=== PATIENT | female | born 1960 | race Two or more races ===

== ENCOUNTER 2017-09-27 09:41 | Emergency (ER) | payer OTHER, MEDICAID ==
[~2017-09-27] VITALS: Ht 162.6 cm; Wt 63.5 kg
[~2017-09-27 09:41] MED LIST: METFSOL2
[2017-09-27 10:00] VITALS: BP 158/85
[2017-09-27] MEDS ORDERED: methylPREDNISolone SOD SUCC 125 MG/2 ML VL IM ONE (10:00)
[2017-09-27] MEDS ORDERED: diphenhdrAMINE HCL 25 MG CAP PO ONE (10:00)
== END 2017-09-27 10:30 | disposition home or self-care (01) ==
LOC: ER 09:41
DX: L30.9 Dermatitis, unspecified (principal); E11.9 Type 2 diabetes mellitus without complications; I10 Essential (primary) hypertension; Z90.49 Acquired absence of other specified parts of digestive tract
CPT/HCPCS: 82962; 96372; 99283; J2930

== ENCOUNTER → 2018-09-09 | Outpatient (CLI) | payer OTHER, MEDICAID ==
[2018-09-09 10:11] LABS: Basophils # (auto) 0 uL; Basophils % (auto) 0.8 % (0.0-2.0); Eosinophils # (auto) 0.1 uL; Eosinophils % (auto) 1.6 % (0.0-7.0); Hematocrit 42.1 % (36.0-46.0); Hemoglobin 14.5 g/dL (12.2-16.2); Lymphocytes # (auto) 1.7 uL; Lymphocytes % (auto) 29.1 % (10.0-50.0); Mean Corpuscular Hemoglobin 29.6 pg (28.0-32.0); Mean Corpuscular Hgb Conc. 34.3 g/dL (32.0-36.0); Mean Corpuscular Volume 86.2 fL (80.0-100.0); Monocytes # (auto) 0.4 uL; Monocytes % (auto) 6.3 % (0.0-12.0); Neutrophils # (auto) 3.6 uL; Neutrophils % (auto) 62.2 % (37.0-80.0); Nucleated Red Blood Cells % 0.1 %; Platelet Count (auto) 293 10^3/uL (140-450); Red Blood Cells 4.89 10^6/uL (4.0-5.20); Red Cell Distribution Width 13.7 % (11.8-14.3); White Blood Cell 5.8 10^3/uL (4.4-10.8)
[2018-09-09 10:15] LABS: Urine Bacteria NONE SEEN /hpf (None Seen); Urine Blood Negative /uL (Negative); Urine Specific Gravity 1.011 (1.001-1.035); Urine WBC <1 /hpf (0 - 5)
[2018-09-09 11:12] LABS: Albumin 4.4 g/dL (3.4-5.0); Calcium 9.4 mg/dL (8.5-10.1); Potassium 3.6 mmol/L (3.5-5.1)
[2018-09-09 11:17] LABS: BUN/Creatinine Ratio 14.4; Bilirubin, Total 0.6 mg/dL (0.2-1.0); Total Protein 8.3 g/dL (6.4-8.2)
== END | disposition home or self-care (01) ==
LOC: LAB 09:13
PROVIDERS: ATTEND Internal Medicine
DX: E11.9 Type 2 diabetes mellitus without complications (principal); I10 Essential (primary) hypertension
CPT/HCPCS: 36415; 80053; 80061; 81001; 82043; 83036; 84439; 84443; 85025; 85652

== ENCOUNTER 2018-11-16 10:46 | Inpatient (IN) | payer OTHER, MEDICAID ==
[~2018-11-16] VITALS: Ht 160 cm; Wt 66.9 kg
[2018-11-16] MEDS ORDERED: diphenhdrAMINE HCL 50 MG/1 ML VL IV ONE ×2 (11:30→12:15)
[2018-11-16] MEDS ORDERED: SODIUM CHLORIDE 0.9% 1,000 ML IVB ONE (12:04)
[2018-11-16] MEDS ORDERED: FAMOTIDINE (10MG/ML) 2ML VL IV ONE (12:15)
[2018-11-16] MEDS ORDERED: methylPREDNISolone SOD SUCC 125 MG/2 ML VL IV ONE (12:15)
[2018-11-16 12:50] LABS: Urine Bacteria FEW /hpf (None Seen); Urine Blood Negative /uL (Negative); Urine Hyaline Cast FEW /lpf (0 - 2); Urine Mucus FEW (None Seen); Urine Specific Gravity 1.033 (1.001-1.035); Urine WBC 24 /hpf (0 - 5)
[2018-11-16 13:12] LABS: Basophils # (auto) 0 uL; Basophils % (auto) 0.3 % (0.0-2.0); Eosinophils # (auto) 0 uL; Eosinophils % (auto) 0.1 % (0.0-7.0); Hematocrit 43.6 % (36.0-46.0); Hemoglobin 14.7 g/dL (12.2-16.2); Lymphocytes # (auto) 1.9 uL; Lymphocytes % (auto) 22.1 % (10.0-50.0); Mean Corpuscular Hgb Conc. 33.6 g/dL (32.0-36.0); Mean Corpuscular Volume 86.2 fL (80.0-100.0); Monocytes # (auto) 0.5 uL; Monocytes % (auto) 5.3 % (0.0-12.0); Neutrophils # (auto) 6.3 uL; Neutrophils % (auto) 72.2 % (37.0-80.0); Platelet Count (auto) 340 10^3/uL (140-450); Red Blood Cells 5.06 10^6/uL (4.0-5.20); White Blood Cell 8.7 10^3/uL (4.4-10.8)
[2018-11-16 13:18] LABS: INR 0.97 (0.9-1.15); Partial Thromboplastin Time 23.1 sec (23.64-32.05)
[2018-11-16 13:28] LABS: Albumin 3.4 g/dL (3.4-5.0); Calcium 8.5 mg/dL (8.5-10.1); Magnesium 2.2 mg/dL (1.6-2.6); Potassium 4.1 mmol/L (3.5-5.1)
[2018-11-16 13:31] LABS: BUN/Creatinine Ratio 22.6; Bilirubin, Total 0.4 mg/dL (0.2-1.0); Total Protein 6.4 g/dL (6.4-8.2)
[2018-11-16] MEDS ORDERED: cefTRIAXone 1GM/50ML D5W 50 ML IV ONE (15:00)
[2018-11-16] MEDS ORDERED: ONDANSETRON HCL 4 MG/2 ML VIAL IV PRN (16:45)
[2018-11-16] MEDS ORDERED: HYDROCORTONE 1% TOPICAL CREAM 30 GM TUBE TOP ONE (16:45)
[2018-11-16] MEDS ORDERED: ACETAMINOPHEN 500 MG TAB PO PRN (16:45)
[2018-11-16] MEDS ORDERED: MORPHINE SULF INJ 2 MG/ML SYRINGE 1ML IV PRN ×2 (16:45)
[2018-11-16] MEDS ORDERED: ALBUTEROL SULF 2.5 MG/0.5ML(0.5%) NEB SOLN NEB PRN (16:45)
[2018-11-16] MEDS ORDERED: NITROGLYCERIN 0.4 MG SL TAB SL PRN (16:45)
[2018-11-16] MEDS ORDERED: HYDROcodone-ACET 5/325MG TAB PO PRN (16:45)
[2018-11-16] MEDS ORDERED: IPRATROPIUM BROM 0.5 MG/2.5ML INH SOL NEB PRN (16:45)
[2018-11-16] MEDS ORDERED: DEXTROSE (50%) 50ML SYRG IV PRN (16:45)
[2018-11-16] MEDS: SODIUM CHLORIDE 0.9% 1,000 ML IV SCH (17:00)
[2018-11-16] MEDS: InsuLIN REG 1unit/0.01ml Soln (100units/ml) SC SCH ×2 (17:22→21:46)
[2018-11-16] MEDS: ACCU-CHEK COMFORT CURVE STRIP VI SCH ×2 (17:22→21:47)
--- NOTE | 2018-11-16 17:44 | NUR ---
Telemetry admit from ER [facility] admitted to Telemetry unit after SBAR received. Patient oriented to Perri Jaime, primary RN, unit, room, bed, and unit policies regarding patient care and visiting hours. Patient now on continuous telemetry monitoring, tele box # [id number] and telemetry reading on arrival to unit is . Patient placed on bedside oxygen at 2l nc as ordered. Pt weighed by bedscale and encouraged to call if they need something. Pt's sister at bedside. All questions and concerns addressed, patient verbalized understanding. No s/s of distress or sob noted. Pt denies pain. Will cont care
[2018-11-16 17:45] VITALS: BP 108/61
[2018-11-16] MEDS ORDERED: ASPI81CH43 PO (18:09)
[2018-11-16] MEDS ORDERED: ATOR10TA52 PO (18:09)
[2018-11-16] MEDS ORDERED: METF-370 PO (18:09)
[2018-11-16] MEDS ORDERED: DYA375C PO (18:09)
--- NOTE | 2018-11-16 18:50 | NUR ---
PT ASSESSED FOR PRN MED NEB TX. SPO2 94% ON RA, HR 104, B/S CLEAR T/O, RR 20. PT DENIES ANY RESPIRATORY DISTRESS. NO TX INDICATED. PT IS AWARE TO HAVE RT PAGED IF TX NEEDED.
[2018-11-16 19:07] VITALS: BP 114/63
[2018-11-16] MEDS: FAMOTIDINE (10MG/ML) 2ML VL IV SCH (21:45)
[2018-11-16] MEDS: ATORVASTATIN 20 MG TAB PO SCH (21:45)
[2018-11-16 22:00] VITALS: BP 114/66
[2018-11-17 05:00] VITALS: BP 141/78
[2018-11-17] MEDS: SODIUM CHLORIDE 0.9% 1,000 ML IV SCH ×2 (06:05→19:28)
[2018-11-17] MEDS: InsuLIN REG 1unit/0.01ml Soln (100units/ml) SC SCH ×4 (06:43→21:27)
[2018-11-17] MEDS: ACCU-CHEK COMFORT CURVE STRIP VI SCH ×4 (06:43→21:27)
--- NOTE | 2018-11-17 07:30 | NUR ---
Patient in bed, breathing even and unlabored, report received from mine shifter RN
--- NOTE | 2018-11-17 07:40 | NUR ---
PROVIDED REPORT TO DAY SHIFT RN. PATIENT IS RESTING IN BED WITH NO SIGNS OF DISTRESS.
[2018-11-17 08:35] VITALS: BP 104/64
[2018-11-17] MEDS: cefTRIAXone 1GM/50ML D5W 50 ML IV SCH (09:17)
[2018-11-17] MEDS: FAMOTIDINE (10MG/ML) 2ML VL IV SCH ×2 (09:25→21:17)
--- NOTE | 2018-11-17 09:44 | NUR ---
Respiratory note: ASSESSED PATIENT FOR PRN BREATHING TX. PATIENT IS AWAKE AND ALERT AT THIS TIME, NO RESPIRATORY DISTRESS NOTED OR STATED. NO TX GIVEN AT THIS TIME. PATIENT IS ON ROOM AIR SPO2 95%, RR 18, HR 122. PATIENT IS AWARE TO HAVE RT PAGED IF BREATHING TX IS NEEDED. WILL CONTINUE TO MONITOR.
--- NOTE | 2018-11-17 10:00 | NUR ---
Patient wants to shower, explained to patient the tele monitor must remain will discuss with MD if tele can be taken off for shower.
--- NOTE | 2018-11-17 12:00 | NUR ---
Patient running ST, checked on patient, patient was up to use restroom.
[2018-11-17 12:29] VITALS: BP 112/67
--- NOTE | 2018-11-17 15:00 | NUR ---
Patient rash reduced redness and swelling.
--- NOTE | 2018-11-17 16:30 | NUR ---
Patient states she is itchy and rash is burning, medicated as documented in [facility].
[2018-11-17] MEDS: diphenhdrAMINE HCL 50 MG/1 ML VL IV PRN (16:49)
[2018-11-17 16:53] VITALS: BP 125/66
[2018-11-17] MEDS ORDERED: methylPREDNISolone SOD SUCC 40 MG/ML VL IV ONE (17:00)
--- NOTE | 2018-11-17 19:20 | NUR ---
Care endorsed to [employer] food shift lead RN.
[2018-11-17 19:34] VITALS: BP 142/67
--- NOTE | 2018-11-17 19:56 | NUR ---
PATIENT HAS ELEVATED TEMPERATURE OF 100.9. PROVIDED TYLENOL ORDERED, COOLING MEASURES, ICE PACKS, REMOVED HEAVY BLANKETS. WILL RECHECK SHORTLY.
[2018-11-17] MEDS: ATORVASTATIN 20 MG TAB PO SCH (21:17)
[2018-11-17] MEDS: HYDROCORTONE 1% TOPICAL CREAM 30 GM TUBE TOP PRN (21:17)
--- NOTE | 2018-11-17 22:00 | NUR ---
paged hospitalist to notify of rashes are more red and elevated. awaiting call back.
[2018-11-17] MEDS ORDERED: methylPREDNISolone SOD SUCC 125 MG/2 ML VL IV ONE (22:30)
[2018-11-17] MEDS ORDERED: diphenhdrAMINE HCL 25 MG CAP PO ONE (22:30)
--- NOTE | 2018-11-17 22:35 | NUR ---
Respiratory note: AT BEDSIDE TO ASSESS FOR PRN TX, TX NOT INDICATED AT THIS TIME, BS ARE CLEAR T/O. NO S/S OF DISTRESS NOTED. PT AWARE I CAN BE PAGED AT ANY TIME. RT NAME AND PAGER ASSIGNMENT WRITTEN ON PTS ROOM BOARD. WILL CONTINUE TO MONITOR.
--- NOTE | 2018-11-17 23:01 | NUR ---
spoke to shasha duran and notified of rashes are more red and raised. shasha duran provided new order of solumedrol 125mg iv one time dose now and Benadryl 50 mg po one time dose now. read back and confirmed. will carry out. Addendum: 11/17/18 at 2307 by Blayne Galaviz RN Also notified of elevated temperature that is trending down, and elevated heart rate. I also notified shasha duran of patient feeling like her body is on fire. Addendum: 11/17/18 at 2325 by Blayne Galaviz RN notified hospitalist shasha that rashes was generalized all over the body.
[2018-11-18 02:08] VITALS: BP 129/74
--- NOTE | 2018-11-18 02:09 | NUR ---
Rashes all over body improved. Rashes are pale in color and has almost completely disappeared. swelling in face has decreased especially around the eyes. Heart rate has improved, it ranges from 100 to 105's. temperature has improved as well. Patient states "i feel great right now". Will continue to monitor patient.
[2018-11-18 05:00] VITALS: BP 133/63
[2018-11-18] MEDS: SODIUM CHLORIDE 0.9% 1,000 ML IV SCH ×2 (06:31→23:39)
[2018-11-18] MEDS: InsuLIN REG 1unit/0.01ml Soln (100units/ml) SC SCH ×4 (06:31→21:50)
[2018-11-18] MEDS: ACCU-CHEK COMFORT CURVE STRIP VI SCH ×4 (06:31→21:42)
[2018-11-18] MEDS: diphenhdrAMINE HCL 50 MG/1 ML VL IV PRN ×3 (06:38→23:40)
--- NOTE | 2018-11-18 06:42 | NUR ---
Called hospitalist to notify of patient having rashes all over body, elevated heart rate. awaiting phone call. provided benadryl IV as ordered for the itchiness.
--- NOTE | 2018-11-18 07:03 | NUR ---
Called hospitalist to notify of patient rashes all over body returned. hospitalist shasha provided new order of solumedrol 80 mg iv one time dose now. read back and confirmed. will endorse to day rn.
[2018-11-18 07:13] LABS: Basophils # (auto) 0 uL; Basophils % (auto) 0.1 % (0.0-2.0); Eosinophils # (auto) 0 uL; Hematocrit 43.1 % (36.0-46.0); Hemoglobin 14.3 g/dL (12.2-16.2); Lymphocytes % (auto) 13.7 % (10.0-50.0); Mean Corpuscular Hemoglobin 28.7 pg (28.0-32.0); Mean Corpuscular Hgb Conc. 33.3 g/dL (32.0-36.0); Mean Corpuscular Volume 86.2 fL (80.0-100.0); Monocytes # (auto) 0 uL; Monocytes % (auto) 0.6 % (0.0-12.0); Neutrophils # (auto) 6.2 uL; Neutrophils % (auto) 85.6 % (37.0-80.0); Nucleated Red Blood Cells % 0.1 %; Platelet Count (auto) 317 10^3/uL (140-450); Red Cell Distribution Width 13.9 % (11.8-14.3); White Blood Cell 7.2 10^3/uL (4.4-10.8)
[2018-11-18] MEDS ORDERED: methylPREDNISolone SOD SUCC 125 MG/2 ML VL IV ONE (07:15)
[2018-11-18 07:17] LABS: Calcium 7.9 mg/dL (8.5-10.1); Magnesium 2.3 mg/dL (1.6-2.6); Potassium 3.8 mmol/L (3.5-5.1)
[2018-11-18 07:21] LABS: BUN/Creatinine Ratio 22.2
--- NOTE | 2018-11-18 07:40 | NUR ---
OPENING NOTE ASSUMED CARE OF PATIENT. ALERT AND ORIENTED. NO SIGNS OF SOB/DISTRESS NOTED. BED SET TO LOWEST POSITION/LOCKED. BEDSIDE RAILS UP X2. CALL LIGHT WITHIN REACH. DISCUSSED POC. INSTRUCTED PATIENT TO CALL FOR ASSISTANCE. WILL CONTINUE TO MONITOR Q1HR AND PRN.
--- NOTE | 2018-11-18 07:43 | NUR ---
provided report to day rn and endorsed solumedrol 80 mg one time dose. notified rn of rashes appeared all over body again.
[2018-11-18 08:33] VITALS: BP 140/73
[2018-11-18] MEDS: FAMOTIDINE (10MG/ML) 2ML VL IV SCH ×2 (09:51→21:42)
[2018-11-18] MEDS: cefTRIAXone 1GM/50ML D5W 50 ML IV SCH (09:51)
[2018-11-18] MEDS ORDERED: methylPREDNISolone SOD SUCC 40 MG/ML VL IV SCH (10:00)
[2018-11-18] MEDS ORDERED: DEXTROSE (50%) 50ML SYRG IV PRN (12:30)
[2018-11-18 13:00] VITALS: BP 154/90
--- NOTE | 2018-11-18 13:30 | NUR ---
Respiratory note: PT ASSESSED FOR PRN MED NEB TX. TX IS NOT INDICATED AT THIS TIME. PT DENIES ANY SOB. POX 98% ON 2L NC, HR 118, RR 18. B/S ARE CLEAR THROUGHOUT AND COARSE ON INSPIRATION IN THE RUL. PT IS AWARE TO PRESS THE CALL LIGHT IF SHE FEELS ANY SOB TO RECEIVE A MED NEB TX.
--- NOTE | 2018-11-18 15:00 | NUR ---
IV insertion IV access obtained, via clean sterile technique by inserting 22 gauge catheter at left wrist after 1 attempt. IV secured properly. No trauma to site. Patient tolerated well.
--- NOTE | 2018-11-18 15:15 | NUR ---
IV removal Right FA 20 gauge IV cath DC'd with clean sterile technique, catheter fully intact. Pressure dressing applied to site. Patient tolerated well.
[2018-11-18 17:00] VITALS: BP 158/87
--- NOTE | 2018-11-18 18:30 | NUR ---
Respiratory note: PT IN NO DISTRESS. PT IN NO NEED OF SVN AT THIS TIME. BREATH SOUNDS ARE CLEAR TO DIMINISHED BILATERALLY. PT KNOWS TO CALL NURSE IF SOB OCCURS.
[2018-11-18] MEDS: HYDROCORTONE 1% TOPICAL CREAM 30 GM TUBE TOP PRN (18:32)
[2018-11-18] MEDS: ATORVASTATIN 20 MG TAB PO SCH (21:42)
[2018-11-18] MEDS: methylPREDNISolone SOD SUCC 40 MG/ML VL IV SCH (21:43)
[2018-11-18 22:00] VITALS: BP 163/70
[2018-11-19 05:00] VITALS: BP 141/77
[2018-11-19] MEDS: InsuLIN REG 1unit/0.01ml Soln (100units/ml) SC SCH ×4 (06:16→21:17)
[2018-11-19] MEDS: diphenhdrAMINE HCL 50 MG/1 ML VL IV PRN ×2 (06:16→18:27)
[2018-11-19] MEDS: ACCU-CHEK COMFORT CURVE STRIP VI SCH ×4 (06:16→21:17)
[2018-11-19] MEDS: FAMOTIDINE (10MG/ML) 2ML VL IV SCH ×2 (08:42→21:11)
[2018-11-19] MEDS: cefTRIAXone 1GM/50ML D5W 50 ML IV SCH (08:42)
[2018-11-19] MEDS: methylPREDNISolone SOD SUCC 40 MG/ML VL IV SCH ×2 (08:42→21:11)
[2018-11-19 08:48] VITALS: BP 137/69
[2018-11-19 09:00] LABS: Potassium 3.7 mmol/L (3.5-5.1)
[2018-11-19 10:03] LABS: Calcium 7.8 mg/dL (8.5-10.1)
--- NOTE | 2018-11-19 10:34 | NUR ---
Respiratory note:PT ON ROOM AIR. BS CLEAR. POX 95, RR 18, PULSE 86. TREATMENT NOT INDICATED AT THIS TIME. PT AWARE TO PRESS CALL LIGHT BUTTON IF SHE FEELS SOB TO REC TX.
[2018-11-19] MEDS: SODIUM CHLORIDE 0.9% 1,000 ML IV SCH (11:25)
--- NOTE | 2018-11-19 11:44 | NUR ---
Nutrition Assessment Notes please see attached link for complete assessment Est. Needs BW 69 [id number] kcal (23-25 kcal/kgBW), 69-75 gms pro (1.0-1.1 gms/kgBW). Will continue to monitor pertinent labs and reassess nutrient need prn. Addendum: 11/19/18 at [address] Amended: Links added.
[2018-11-19 12:48] VITALS: BP 156/81
--- NOTE | 2018-11-19 16:15 | NUR ---
PATIENT C/O CHEST PAIN. NONRADIATING. ASYMPTOMATIC. PATIENT SITTING ON BED WATCHING TV. EKG ADMINISTERED. WILL INFORM .
[2018-11-19] MEDS ORDERED: CIPR-173 PO (16:19)
--- NOTE | 2018-11-19 16:45 | NUR ---
SPOKE TO DR. MALONEY, WAS MADE AWARE OF CURRENT SITUATION. PROVIDED EKG. PER MD DR. MOELLER WAS CONSULTED AND DISCHARGE WAS PLACED ON HOLD. EKG PLACED IN CHART. WILL CONTINUE TO MONITOR.
[2018-11-19 17:00] VITALS: BP 167/94
[2018-11-19] MEDS ORDERED: DOCUSATE SOD 100 MG CAP PO PRN (18:15)
[2018-11-19] MEDS ORDERED: TEMAZEPAM 15 MG CAP PO PRN (18:15)
--- NOTE | 2018-11-19 19:28 | NUR ---
ENDORSED CARE TO MOISES MARTINEZ.
[2018-11-19] MEDS: ATORVASTATIN 20 MG TAB PO SCH (21:11)
[2018-11-19 21:32] VITALS: BP 167/94
[2018-11-19 22:00] VITALS: BP 159/74
--- NOTE | 2018-11-19 22:42 | NUR ---
Respiratory note: ASSESSED PT AT THIS TIME FOR PRN MED NEB, PT DENIES SOB AT THIS TIME, NO RESP DISTRESS NOTED, NO TX INDICATED, PULSE OX 97% ON 2LNC, HR 86, RR 18, BILATERAL BS CLEAR.
--- NOTE | 2018-11-19 23:55 | NUR ---
ELEVATED D-DIMER D-DIMER RESULT OF 0.92 CRP 1.42 NOTIFIED HOSPITALIST Tobi MORROW OF RESULTS. NEW ORDERS RECEIVED FOR EXTREMITY VENOUS TOMORROW AFTER BREAKFAST.
--- NOTE | 2018-11-20 00:35 | NUR ---
RASH/BURNING PATIENT REPORTS HER SKIN IS "BURNING ALL OVER" , MACULOPAPULAR RASH NOTED TO PATIENT'S ARMS BILATERALLY, UPPER CHEST, BILATERAL KNEES, AND INNER THIGHS. PATIENT GIVEN BENADRYL PRN ORDERED, HYDROCORTISONE CREAM APPLIED TO AFFECTED AREAS ORDERED PRN.
[2018-11-20] MEDS: diphenhdrAMINE HCL 50 MG/1 ML VL IV PRN ×4 (00:37→22:46)
[2018-11-20] MEDS: HYDROCORTONE 1% TOPICAL CREAM 30 GM TUBE TOP PRN (00:42)
--- NOTE | 2018-11-20 03:45 | NUR ---
INCONTINENT PATIENT INCONTINENT OF URINE, FULL LINEN CHANGE PROVIDED TO PATIENT. PATIENT CLEANED AND NEW GOWN PROVIDED. BED ALARM PLACED ON AND CALL LIGHT IN REACH.
[2018-11-20 04:30] VITALS: BP 160/87
[2018-11-20] MEDS: ACCU-CHEK COMFORT CURVE STRIP VI SCH ×4 (06:38→22:46)
[2018-11-20] MEDS: InsuLIN REG 1unit/0.01ml Soln (100units/ml) SC SCH ×4 (06:38→23:08)
--- NOTE | 2018-11-20 08:32 | NUR ---
RT NOTE: PRN BREATHING TX. NOT INDICATED AT THIS TIME. NO S/S OF RESPIRATORY DISTRESS NOTED. PT. HR 84, RR 16, POX 96% 2L N/C.
[2018-11-20 08:43] VITALS: BP 168/77
[2018-11-20] MEDS: cefTRIAXone 1GM/50ML D5W 50 ML IV SCH ×2 (08:53→09:34)
[2018-11-20] MEDS: methylPREDNISolone SOD SUCC 40 MG/ML VL IV SCH ×2 (09:35→22:45)
[2018-11-20] MEDS: FAMOTIDINE (10MG/ML) 2ML VL IV SCH ×2 (09:35→22:46)
--- NOTE | 2018-11-20 12:00 | NUR ---
Pt's B/P 178/83. Dr. Christiansen informed. Dr. Christiansen states that she will review pt's chart and home medications.
[2018-11-20] MEDS ORDERED: TRIAMTERENE/HCTZ 37.5/25 MG CAP/TAB PO ONE (12:30)
[2018-11-20 13:10] VITALS: BP 178/83
[2018-11-20 16:58] VITALS: BP 172/88
--- NOTE | 2018-11-20 18:00 | NUR ---
Pt showing no change from initial assessment. Benadryl given, times 1, during this shift for c/o itching. Scattered, diffuse raised rash noted. No resp distress. No other c/o pain or discomfort. Sister remains at bedside throughout this shift.
--- NOTE | 2018-11-20 19:20 | NUR ---
Opening Shift Note Assumed care of patient, awake and alert. No S/S of distress/SOB or pain. Bed in lowest locked position, side rails up x2, call light within reach, bed alarm on. Instructed on POC and to call for assist PRN, will continue to monitor for changes Q1hr and PRN.
--- NOTE | 2018-11-20 19:23 | NUR ---
Family Spoke with patient's sister, Addie. Addie stated that she would like to talk to the doctors prior to VQ scan or Cardiolite being performed. Addie states they are concerned about the contrast dyes involved with the procedures. Will make dayshift RN aware of family's concerns and continue to monitor patient.
--- NOTE | 2018-11-20 20:05 | NUR ---
Respiratory note: ASSESSED PT FOR PRN TX. PT IS CURRENTLY ON ROOM AIR: HR 83, RR 18, SPO2 93%. PT SHOWS NO S/S OF RESPIRATORY DISTRESS. MED NEB TX NOT INDICATED AT THIS TIME. WILL CONTINUE TO MONITOR.
[2018-11-20 22:00] VITALS: BP 160/100
[2018-11-20] MEDS: ATORVASTATIN 20 MG TAB PO SCH (22:45)
[2018-11-20] MEDS: hydrALAZINE HCL 20 MG/ML VL IV PRN (23:26)
[2018-11-21] VITALS (7 sets, daily range): BP systolic 129–159; BP diastolic 64–100
--- NOTE | 2018-11-21 | NUR ---
Hypertension Blood pressure 160/100 during vital sign check, but patient noted to be anxious and reporting itchiness during vital sign assessment. Patient reassessed at 23:20, blood pressure 160/92. PRN Apresoline administered as ordered, blood pressure 148/80 with 94 heart rate at this time.
--- NOTE | 2018-11-21 06:39 | NUR ---
Closing Note Patient lying in bed, awake and alert. Bed in lowest locked position, side rails up x2, call light within reach. Patient given supplies for bed bath, cleaned self, and linens changed. No s/s of distress. Will endorse care to dayshift RN.
[2018-11-21 06:42] LABS: Basophils # (auto) 0 uL; Basophils % (auto) 0.1 % (0.0-2.0); Eosinophils # (auto) 0 uL; Hematocrit 42.5 % (36.0-46.0); Hemoglobin 14.5 g/dL (12.2-16.2); Lymphocytes # (auto) 0.9 uL; Lymphocytes % (auto) 10.6 % (10.0-50.0); Mean Corpuscular Hemoglobin 29.1 pg (28.0-32.0); Mean Corpuscular Hgb Conc. 34.1 g/dL (32.0-36.0); Mean Corpuscular Volume 85.4 fL (80.0-100.0); Monocytes # (auto) 0.3 uL; Monocytes % (auto) 3.5 % (0.0-12.0); Neutrophils # (auto) 7.1 uL; Neutrophils % (auto) 85.8 % (37.0-80.0); Nucleated Red Blood Cells % 0.1 %; Platelet Count (auto) 286 10^3/uL (140-450); Red Blood Cells 4.98 10^6/uL (4.0-5.20); Red Cell Distribution Width 13.6 % (11.8-14.3); White Blood Cell 8.3 10^3/uL (4.4-10.8)
[2018-11-21] MEDS: hydrALAZINE HCL 20 MG/ML VL IV PRN ×2 (06:47→14:26)
[2018-11-21] MEDS: ACCU-CHEK COMFORT CURVE STRIP VI SCH ×3 (06:48→18:39)
[2018-11-21] MEDS: InsuLIN REG 1unit/0.01ml Soln (100units/ml) SC SCH ×3 (06:59→18:40)
[2018-11-21 07:01] LABS: Alanine Aminotransferase 19 U/L (13-56); Albumin 3.4 g/dL (3.4-5.0); Anion Gap 12 (5-15); Aspartate Aminotransferase 11 U/L (15-37); BUN/Creatinine Ratio 28.8; Blood Urea Nitrogen 30 mg/dL (7-18); Calcium 8.1 mg/dL (8.5-10.1); Carbon Dioxide 25 mmol/L (21-32); Chloride 107 mmol/L (98-107); GFR African American 70 mL/min; GFR Non-African American 58 mL/min; Glucose 222 mg/dL (74-106); Magnesium 2.3 mg/dL (1.6-2.6); Potassium 3.8 mmol/L (3.5-5.1); Sodium 144 mmol/L (136-145)
[2018-11-21 07:05] LABS: Alkaline Phosphatase 74 U/L (45-117); Bilirubin, Total 0.4 mg/dL (0.2-1.0)
--- NOTE | 2018-11-21 07:15 | NUR ---
Opening Shift Note Assumed care of patient, awake and alert, sitting up in bed. No S/S of distress/SOB, no pain noted or reported at this time. Respirations are even and unlabored on RA. Updated on POC and instructed to call for assistance as needed, pt. verbalized understanding. Bed locked in lowest position, side rails up x2, call light within reach. Will continue to monitor for changes Q1hr and PRN.
--- NOTE | 2018-11-21 07:40 | NUR ---
Spoke with [facility] Made both departments aware of procedure holds. Pt. sister (Cesar JANSEN) wants to clarify interventions with MD before cardiolite and VQ scan are completed.
[2018-11-21] MEDS ORDERED: ADENOSINE 56 MG in GIVE UN-DILUTED 0 ML IV STA (08:48)
[2018-11-21] MEDS ORDERED: TRIAMTERENE/HCTZ 37.5/25 MG CAP/TAB PO SCH (10:00)
[2018-11-21] MEDS ORDERED: ASPirin-EC 81 mg tab PO SCH (10:00)
[2018-11-21] MEDS: FAMOTIDINE (10MG/ML) 2ML VL IV SCH (10:08)
[2018-11-21] MEDS: methylPREDNISolone SOD SUCC 40 MG/ML VL IV SCH (10:08)
[2018-11-21] MEDS: diphenhdrAMINE HCL 50 MG/1 ML VL IV PRN (10:08)
--- NOTE | 2018-11-21 10:19 | NUR ---
Dr. Christiansen at bedside Pt. refusing Cardiolite and VQ scan.
--- NOTE | 2018-11-21 13:29 | NUR ---
Respiratory note: ASSESSED PT FOR PRN MEDNEB TX. HR 102, RR 14, POX 96% ON ROOM AIR. BREATH SOUNDS CLEAR/DIMINISHED. NO S/S OF RESPIRATORY DISTRESS. PT DENIES ANY SOB. MEDNEB TX NOT INDICATED AT THIS TIME. ADVISED PT TO CALL FOR RT IF FEELING SOB.
[2018-11-21] MEDS ORDERED: DIPH25CA66 PO (15:54)
[2018-11-21] MEDS ORDERED: MET25T PO (15:54)
[2018-11-21] MEDS ORDERED: FAM20T PO (15:54)
[2018-11-21] MEDS ORDERED: METOPROLOL TARTRATE 25 MG TAB PO ONE (16:00)
--- NOTE | 2018-11-21 19:23 | NUR ---
CARE ENDORSED TO METAL WINDOW SCREEN ASSEMBLER RN
--- NOTE | 2018-11-21 20:30 | NUR ---
Regular Discharge Dr. Kitchen, apointment date 11/30/2018 at 0930. Primary phone number is [phone]. Primary address [address] [place] [address]. Information given to the patient. Discharge paper work reviewed and signed by another RN. Patient discharged with discharge paperwork given and educated about discharge paperwork. Reviewed discharge paper work with the patient and caregiver Justine who is the patients sister. IV removed from the patient and secured with gauze and coband. Patient tolerated well. Telemetry box removed from the patient and sent back to [facility]. No S/S of distress SOB or pain noted in the patient. Patient discharged home with sister Justine.
== END 2018-11-21 20:30 | disposition home or self-care (01) | DRG 915 ==
LOC: ER 10:53 → TELE-WESTW 10:54
PROVIDERS: ADMIT Nurse Practitioner Acute Care; ATTEND Internal Medicine
DX: T78.3XXA Angioneurotic edema, initial encounter (principal); N17.0 Acute kidney failure with tubular necrosis; N30.00 Acute cystitis without hematuria; E11.22 Type 2 diabetes mellitus with diabetic chronic kidney disease; E78.00 Pure hypercholesterolemia, unspecified; E78.5 Hyperlipidemia, unspecified; F79 Unspecified intellectual disabilities; I12.9 Hypertensive chronic kidney disease with stage 1 through stage 4 chronic kidney disease, or unspecified chronic kidney disease; T46.4X5A Adverse effect of angiotensin-converting-enzyme inhibitors, initial encounter; N18.3 Chronic kidney disease, stage 3 (moderate); Z79.82 Long term (current) use of aspirin; Z79.84 Long term (current) use of oral hypoglycemic drugs; Z79.899 Other long term (current) drug therapy; Z82.49 Family history of ischemic heart disease and other diseases of the circulatory system; Z83.3 Family history of diabetes mellitus; Z88.8 Allergy status to other drugs, medicaments and biological substances; Y92.89 Other specified places as the place of occurrence of the external cause; Z90.49 Acquired absence of other specified parts of digestive tract
CPT/HCPCS: 36415; 71045; 80048; 80053; 80061; 81001; 82962; 83036; 83735; 83880; 84484; 85025; 85379; 85610; 85730; 86141; 87040; 87086; 93306; 93970; 96365; 96375; G0378; J0153; J0696; J1815; J2405; J3490

== ENCOUNTER 2020-11-01 18:29 | Inpatient (IN) | payer OTHER, MEDICAID ==
[~2020-11-01] VITALS: Ht 154.9 cm; Wt 65.8 kg
[~2020-11-01 18:29] MED LIST changes: +ASPI81CH43 PO; +ATOR10TA52 PO; +DIPH25CA66 PO; +FAMO20TA10 PO; +MET25T PO; +METF-370 PO; +TRIA37.56 PO
[2020-11-01] MEDS ORDERED: levoFLOXacin 500MG 100 ML IV ONE (18:45)
[2020-11-01] MEDS ORDERED: ONDANSETRON HCL 4 MG/2 ML VIAL IV ONE (18:45)
[2020-11-01] MEDS ORDERED: SODIUM CHLORIDE 0.9% 1,000 ML IV ONE (18:45)
[2020-11-01] MEDS ORDERED: IOHEXOL 300 MG/ML 100ML BOTTLE IJ ONE (18:53)
[2020-11-01 19:15] LABS: Basophils # (auto) 0 10 ^3/uL (0-0.2); Basophils % (auto) 0.2 % (0.0-2.0); Eosinophils # (auto) 0 10 ^3/uL (0-0.8); Eosinophils % (auto) 0.2 % (0.0-7.0); Hematocrit 43.2 % (36.0-46.0); Hemoglobin 15.2 g/dL (12.2-16.2); Lymphocytes # (auto) 1.7 10 ^3/uL (0.4-5.4); Lymphocytes % (auto) 11.8 % (10.0-50.0); Mean Corpuscular Hemoglobin 29.2 pg (28.0-32.0); Mean Corpuscular Hgb Conc. 35.1 g/dL (32.0-36.0); Monocytes # (auto) 0.6 10 ^3/uL (0-1.3); Monocytes % (auto) 4.4 % (0.0-12.0); Neutrophils # (auto) 12.3 10 ^3/uL (1.6-8.6); Neutrophils % (auto) 83.4 % (37.0-80.0); Platelet Count (auto) 316 10^3/uL (140-450); Red Cell Distribution Width 13.7 % (11.8-14.3); White Blood Cell 14.7 10^3/uL (4.4-10.8)
[2020-11-01] MEDS ORDERED: fentaNYL CITRATE 100 MCG/2 ML VL IV ONE (19:30)
[2020-11-01 19:43] LABS: Albumin 4.4 g/dL (3.4-5.0); Anion Gap 11 (5-15); Blood Urea Nitrogen 26 mg/dL (7-18); Calcium 9.3 mg/dL (8.5-10.1); Carbon Dioxide 26 mmol/L (21-32); Chloride 100 mmol/L (98-107); Glucose 219 mg/dL (74-106); Lipase 193 U/L (73-393); Sodium 137 mmol/L (136-145)
[2020-11-01 19:49] LABS: Alanine Aminotransferase 21 U/L (13-56); Alkaline Phosphatase 115 U/L (45-117); Aspartate Aminotransferase 13 U/L (15-37); BUN/Creatinine Ratio 19.5; Bilirubin, Total 0.9 mg/dL (0.2-1.0); GFR African American 53 mL/min; GFR Non-African American 43 mL/min; Total Protein 9.1 g/dL (6.4-8.2)
[2020-11-01 19:57] LABS: Urine Bacteria FEW /hpf (None Seen); Urine Blood 3+ /uL (Negative); Urine Specific Gravity 1.015 (1.001-1.035); Urine WBC 97 /hpf (0 - 5); Urine WBC Clumps PRESENT /hpf (None Seen)
[2020-11-01] MEDS ORDERED: DEXTROSE (50%) 50ML SYRG IV PRN (22:00)
[2020-11-01] MEDS ORDERED: TEMAZEPAM 15 MG CAP PO PRN (22:00)
[2020-11-01] MEDS ORDERED: NITROGLYCERIN 0.4 MG SL TAB SL PRN (22:00)
[2020-11-01] MEDS ORDERED: ONDANSETRON HCL 4 MG/2 ML VIAL IV PRN (22:00)
[2020-11-01] MEDS ORDERED: HYDROcodone-ACET 5/325MG TAB PO PRN (22:00)
[2020-11-01] MEDS ORDERED: MORPHINE SULF INJ 2 MG/ML SYRINGE 1ML IV PRN (22:00)
[2020-11-01] MEDS ORDERED: POTASSIUM CHLORIDE 40 MEQ, LIDOCAINE 1% (LOCAL ANESTH.) 4 ML in SODIUM CHL 0.9% 250 ML IV ONE (22:00)
[2020-11-01] MEDS ORDERED: DOCUSATE SOD 100 MG CAP PO PRN (22:00)
[2020-11-01] MEDS: ACCU-CHEK COMFORT CURVE STRIP VI SCH (22:38)
[2020-11-01] MEDS: ASCORBIC ACID 500 MG TAB PO SCH (22:50)
[2020-11-01] MEDS: METOPROLOL TARTRATE 50 MG TAB PO SCH (22:50)
[2020-11-01] MEDS: FAMOTIDINE (10MG/ML) 2ML VL IV SCH (22:51)
[2020-11-01] MEDS: SODIUM CHLOR 0.9% PF (SALINE LOCK) 10ML VIAL/SYR IV SCH (22:52)
[2020-11-01] MEDS: HEPARIN SODIUM (PORCINE) 5000 UNITS/ML 1ML VIAL SC SCH (22:52)
[2020-11-01] MEDS: InsuLIN REG 1unit/0.01ml Soln (100units/ml) SC SCH (22:52)
[2020-11-01] MEDS: POTASSIUM CHL 20MEQ/100ML 100 ML IV SCH (23:04)
[2020-11-02 01:02] VITALS: BP 133/70
[2020-11-02] MEDS: POTASSIUM CHL 20MEQ/100ML 100 ML IV SCH (02:10)
[2020-11-02] MEDS ORDERED: AMLO-489 PO (02:53)
[2020-11-02 05:03] VITALS: BP 120/64
[2020-11-02 05:54] LABS: Basophils # (auto) 0.1 10 ^3/uL (0-0.2); Basophils % (auto) 0.3 % (0.0-2.0); Eosinophils # (auto) 0 10 ^3/uL (0-0.8); Hematocrit 38.1 % (36.0-46.0); Hemoglobin 13.4 g/dL (12.2-16.2); Lymphocytes # (auto) 1.6 10 ^3/uL (0.4-5.4); Lymphocytes % (auto) 9.1 % (10.0-50.0); Mean Corpuscular Hemoglobin 29.4 pg (28.0-32.0); Mean Corpuscular Hgb Conc. 35.2 g/dL (32.0-36.0); Mean Corpuscular Volume 83.8 fL (80.0-100.0); Monocytes % (auto) 5.9 % (0.0-12.0); Neutrophils # (auto) 14.7 10 ^3/uL (1.6-8.6); Neutrophils % (auto) 84.7 % (37.0-80.0); Platelet Count (auto) 262 10^3/uL (140-450); Red Blood Cells 4.54 10^6/uL (4.0-5.20); Red Cell Distribution Width 13.6 % (11.8-14.3); White Blood Cell 17.4 10^3/uL (4.4-10.8)
[2020-11-02] MEDS: SODIUM CHLOR 0.9% PF (SALINE LOCK) 10ML VIAL/SYR IV SCH ×3 (06:11→22:16)
[2020-11-02 06:13] LABS: Albumin 3.2 g/dL (3.4-5.0); Potassium 3.5 mmol/L (3.5-5.1)
[2020-11-02 06:18] LABS: Bilirubin, Total 0.6 mg/dL (0.2-1.0); Total Protein 7.2 g/dL (6.4-8.2)
[2020-11-02] MEDS: ACCU-CHEK COMFORT CURVE STRIP VI SCH ×4 (06:21→22:14)
[2020-11-02] MEDS: InsuLIN REG 1unit/0.01ml Soln (100units/ml) SC SCH ×4 (06:22→22:15)
[2020-11-02] MEDS ORDERED: VANCOMYCIN PER PHARMACY 0 MG IV SCH (06:30)
[2020-11-02] MEDS ORDERED: VANCOMYCIN 1GM/250ML 250 ML IV ONE (08:00)
[2020-11-02 09:00] VITALS: BP 141/75
[2020-11-02] MEDS ORDERED: cefTRIAXone 1GM/50ML D5W 50 ML IV SCH (09:00)
[2020-11-02] MEDS: FAMOTIDINE (10MG/ML) 2ML VL IV SCH ×2 (09:40→22:16)
[2020-11-02] MEDS: ASPirin 81 mg TAB PO SCH (09:40)
[2020-11-02] MEDS: ASCORBIC ACID 500 MG TAB PO SCH ×2 (09:40→22:15)
[2020-11-02] MEDS: MULTIPLE VITAMIN TAB PO SCH (09:40)
[2020-11-02] MEDS: ZINC SULFATE 220mg CAP or TAB PO SCH (09:41)
[2020-11-02] MEDS: amLODIPine BESYLATE 5 MG TAB PO SCH (09:41)
[2020-11-02] MEDS: METOPROLOL TARTRATE 50 MG TAB PO SCH ×2 (09:42→22:16)
[2020-11-02] MEDS: HEPARIN SODIUM (PORCINE) 5000 UNITS/ML 1ML VIAL SC SCH ×2 (09:42→22:15)
[2020-11-02 13:00] VITALS: BP 130/67
[2020-11-02] MEDS: ACETAMINOPHEN 325 MG TAB PO PRN (15:27)
[2020-11-02 15:57] LABS: Basophils # (auto) 0 10 ^3/uL (0-0.2); Basophils % (auto) 0.5 % (0.0-2.0); Eosinophils # (auto) 0 10 ^3/uL (0-0.8); Eosinophils % (auto) 0.4 % (0.0-7.0); Hematocrit 36.9 % (36.0-46.0); Hemoglobin 13.2 g/dL (12.2-16.2); Lymphocytes # (auto) 0.9 10 ^3/uL (0.4-5.4); Lymphocytes % (auto) 9.8 % (10.0-50.0); Mean Corpuscular Hemoglobin 29.7 pg (28.0-32.0); Mean Corpuscular Hgb Conc. 35.6 g/dL (32.0-36.0); Mean Corpuscular Volume 83.4 fL (80.0-100.0); Monocytes # (auto) 0.5 10 ^3/uL (0-1.3); Monocytes % (auto) 4.9 % (0.0-12.0); Neutrophils % (auto) 84.4 % (37.0-80.0); Platelet Count (auto) 256 10^3/uL (140-450); Red Blood Cells 4.43 10^6/uL (4.0-5.20); Red Cell Distribution Width 13.6 % (11.8-14.3); White Blood Cell 9.4 10^3/uL (4.4-10.8)
[2020-11-02 16:11] LABS: BUN/Creatinine Ratio 22.9; Calcium 8.4 mg/dL (8.5-10.1); Potassium 3.2 mmol/L (3.5-5.1)
[2020-11-02] MEDS ORDERED: MEROPENEM 1GM IVPB 100 ML IV ONE (16:30)
[2020-11-02] MEDS ORDERED: POTASSIUM CHL 10 Meq TABLET PO ONE (16:45)
[2020-11-02 17:00] VITALS: BP 129/67
[2020-11-02 21:37] VITALS: BP 126/67
[2020-11-02] MEDS ORDERED: levoFLOXacin 250MG 50 ML IV SCH (22:00)
[2020-11-02] MEDS: ATORVASTATIN 20 MG TAB PO SCH (22:15)
[2020-11-03] MEDS: MEROPENEM 1GM IVPB 100 ML IV SCH ×3 (01:52→18:00)
[2020-11-03] MEDS: ACETAMINOPHEN 325 MG TAB PO PRN (03:45)
[2020-11-03 04:33] VITALS: BP 138/89
[2020-11-03] MEDS: SODIUM CHLOR 0.9% PF (SALINE LOCK) 10ML VIAL/SYR IV SCH ×3 (05:52→21:46)
[2020-11-03] MEDS: InsuLIN REG 1unit/0.01ml Soln (100units/ml) SC SCH ×4 (06:02→21:47)
[2020-11-03] MEDS: ACCU-CHEK COMFORT CURVE STRIP VI SCH ×4 (06:03→21:46)
[2020-11-03 09:00] VITALS: BP 118/69
[2020-11-03] MEDS: FAMOTIDINE (10MG/ML) 2ML VL IV SCH ×2 (09:04→21:46)
[2020-11-03] MEDS: ASPirin 81 mg TAB PO SCH (09:05)
[2020-11-03] MEDS: ZINC SULFATE 220mg CAP or TAB PO SCH (09:05)
[2020-11-03] MEDS: MULTIPLE VITAMIN TAB PO SCH (09:05)
[2020-11-03] MEDS: ASCORBIC ACID 500 MG TAB PO SCH ×2 (09:05→21:45)
[2020-11-03] MEDS: HEPARIN SODIUM (PORCINE) 5000 UNITS/ML 1ML VIAL SC SCH ×2 (09:06→21:46)
[2020-11-03] MEDS: amLODIPine BESYLATE 5 MG TAB PO SCH (09:26)
[2020-11-03] MEDS: METOPROLOL TARTRATE 50 MG TAB PO SCH ×2 (09:26→21:46)
[2020-11-03] MEDS ORDERED: POTASSIUM CHL 20 Meq TABLET PO ONE (09:30)
[2020-11-03 11:14] LABS: Basophils # (auto) 0 10 ^3/uL (0-0.2); Basophils % (auto) 0.5 % (0.0-2.0); Eosinophils # (auto) 0.1 10 ^3/uL (0-0.8); Eosinophils % (auto) 1.7 % (0.0-7.0); Hematocrit 38.3 % (36.0-46.0); Hemoglobin 13.3 g/dL (12.2-16.2); Lymphocytes # (auto) 0.7 10 ^3/uL (0.4-5.4); Lymphocytes % (auto) 12.1 % (10.0-50.0); Mean Corpuscular Hemoglobin 29.2 pg (28.0-32.0); Mean Corpuscular Hgb Conc. 34.8 g/dL (32.0-36.0); Mean Corpuscular Volume 83.8 fL (80.0-100.0); Monocytes # (auto) 0.4 10 ^3/uL (0-1.3); Neutrophils # (auto) 4.4 10 ^3/uL (1.6-8.6); Neutrophils % (auto) 78.7 % (37.0-80.0); Nucleated Red Blood Cells % 0.1 %; Platelet Count (auto) 245 10^3/uL (140-450); Red Blood Cells 4.57 10^6/uL (4.0-5.20); Red Cell Distribution Width 13.3 % (11.8-14.3); White Blood Cell 5.6 10^3/uL (4.4-10.8)
[2020-11-03 11:19] LABS: Calcium 8.4 mg/dL (8.5-10.1); Potassium 3.4 mmol/L (3.5-5.1)
[2020-11-03 11:24] LABS: BUN/Creatinine Ratio 22.5; Bilirubin, Total 0.4 mg/dL (0.2-1.0)
[2020-11-03 13:00] VITALS: BP 129/69
[2020-11-03 17:00] VITALS: BP 152/77
[2020-11-03 19:41] LABS: BUN/Creatinine Ratio 20.8; Calcium 8.8 mg/dL (8.5-10.1)
[2020-11-03] MEDS: ATORVASTATIN 20 MG TAB PO SCH (21:45)
[2020-11-03 22:00] VITALS: BP 152/75
[2020-11-04] MEDS: MEROPENEM 1GM IVPB 100 ML IV SCH ×3 (01:34→17:35)
[2020-11-04] MEDS: ACETAMINOPHEN 325 MG TAB PO PRN (03:58)
[2020-11-04 05:00] VITALS: BP 122/70
[2020-11-04] MEDS: InsuLIN REG 1unit/0.01ml Soln (100units/ml) SC SCH ×4 (06:05→21:37)
[2020-11-04] MEDS: ACCU-CHEK COMFORT CURVE STRIP VI SCH ×4 (06:05→21:36)
[2020-11-04] MEDS: SODIUM CHLOR 0.9% PF (SALINE LOCK) 10ML VIAL/SYR IV SCH ×3 (06:05→21:34)
[2020-11-04 09:00] VITALS: BP 105/63
[2020-11-04] MEDS: HEPARIN SODIUM (PORCINE) 5000 UNITS/ML 1ML VIAL SC SCH ×2 (09:12→21:41)
[2020-11-04] MEDS: ZINC SULFATE 220mg CAP or TAB PO SCH (09:15)
[2020-11-04] MEDS: ASCORBIC ACID 500 MG TAB PO SCH ×2 (09:15→21:35)
[2020-11-04] MEDS: MULTIPLE VITAMIN TAB PO SCH (09:15)
[2020-11-04] MEDS: ASPirin 81 mg TAB PO SCH (09:15)
[2020-11-04] MEDS: FAMOTIDINE (10MG/ML) 2ML VL IV SCH (09:15)
[2020-11-04] MEDS: METOPROLOL TARTRATE 50 MG TAB PO SCH ×2 (09:16→21:35)
[2020-11-04] MEDS: amLODIPine BESYLATE 5 MG TAB PO SCH (09:16)
[2020-11-04 13:00] VITALS: BP 124/71
[2020-11-04 17:00] VITALS: BP 129/70
[2020-11-04] MEDS: ATORVASTATIN 20 MG TAB PO SCH (21:35)
[2020-11-04 22:00] VITALS: BP 149/73
[2020-11-05] MEDS: MEROPENEM 1GM IVPB 100 ML IV SCH ×2 (02:00→10:10)
[2020-11-05 05:00] VITALS: BP 122/63
[2020-11-05] MEDS: ACCU-CHEK COMFORT CURVE STRIP VI SCH ×4 (05:59→22:04)
[2020-11-05] MEDS: SODIUM CHLOR 0.9% PF (SALINE LOCK) 10ML VIAL/SYR IV SCH ×3 (05:59→21:54)
[2020-11-05] MEDS: InsuLIN REG 1unit/0.01ml Soln (100units/ml) SC SCH ×4 (06:00→22:06)
[2020-11-05 07:20] LABS: Potassium 3.9 mmol/L (3.5-5.1)
[2020-11-05 07:25] LABS: BUN/Creatinine Ratio 20.2; Calcium 8.8 mg/dL (8.5-10.1)
[2020-11-05 09:00] VITALS: BP 125/65
[2020-11-05] MEDS: ASCORBIC ACID 500 MG TAB PO SCH ×2 (10:09→21:55)
[2020-11-05] MEDS: MULTIPLE VITAMIN TAB PO SCH (10:09)
[2020-11-05] MEDS: METOPROLOL TARTRATE 50 MG TAB PO SCH ×2 (10:09→21:55)
[2020-11-05] MEDS: amLODIPine BESYLATE 5 MG TAB PO SCH (10:10)
[2020-11-05] MEDS: ASPirin 81 mg TAB PO SCH (10:10)
[2020-11-05] MEDS: ZINC SULFATE 220mg CAP or TAB PO SCH (10:10)
[2020-11-05] MEDS: HEPARIN SODIUM (PORCINE) 5000 UNITS/ML 1ML VIAL SC SCH ×2 (10:18→21:56)
[2020-11-05 13:00] VITALS: BP 114/69
[2020-11-05] MEDS ORDERED: levoFLOXacin 500 MG TAB PO ONE (16:30)
[2020-11-05 17:00] VITALS: BP 119/71
[2020-11-05] MEDS: ATORVASTATIN 20 MG TAB PO SCH (21:54)
[2020-11-05 22:00] VITALS: BP 125/70
[2020-11-06 05:00] VITALS: BP 105/59
[2020-11-06] MEDS: SODIUM CHLOR 0.9% PF (SALINE LOCK) 10ML VIAL/SYR IV SCH (06:13)
[2020-11-06] MEDS: ACCU-CHEK COMFORT CURVE STRIP VI SCH ×2 (06:24→11:10)
[2020-11-06] MEDS: InsuLIN REG 1unit/0.01ml Soln (100units/ml) SC SCH ×2 (06:25→11:10)
[2020-11-06 09:00] VITALS: BP 129/72
[2020-11-06] MEDS ORDERED: LEVO-28 PO (09:44)
[2020-11-06] MEDS ORDERED: levoFLOXacin 500 MG TAB PO SCH (10:00)
[2020-11-06] MEDS: ASPirin 81 mg TAB PO SCH (10:49)
[2020-11-06] MEDS: ASCORBIC ACID 500 MG TAB PO SCH (10:51)
[2020-11-06] MEDS: ZINC SULFATE 220mg CAP or TAB PO SCH (10:51)
[2020-11-06] MEDS: METOPROLOL TARTRATE 50 MG TAB PO SCH (10:51)
[2020-11-06] MEDS: MULTIPLE VITAMIN TAB PO SCH (10:51)
[2020-11-06] MEDS: amLODIPine BESYLATE 5 MG TAB PO SCH (10:51)
[2020-11-06] MEDS: HEPARIN SODIUM (PORCINE) 5000 UNITS/ML 1ML VIAL SC SCH (10:55)
== END 2020-11-06 12:08 | disposition home or self-care (01) | DRG 872 ==
LOC: EDBD 18:29 → ER 18:29 → TELE-CENTR 21:50 → CENTRAL 11-04 16:07
PROVIDERS: ADMIT Nurse Practitioner Family; ATTEND Internal Medicine
DX: A41.51 Sepsis due to Escherichia coli [E. coli] (principal); N17.9 Acute kidney failure, unspecified; N13.6 Pyonephrosis; I45.10 Unspecified right bundle-branch block; E87.6 Hypokalemia; E11.65 Type 2 diabetes mellitus with hyperglycemia; I10 Essential (primary) hypertension; F70 Mild intellectual disabilities; E78.5 Hyperlipidemia, unspecified; Z79.82 Long term (current) use of aspirin; Z79.84 Long term (current) use of oral hypoglycemic drugs; Z82.3 Family history of stroke; Z82.49 Family history of ischemic heart disease and other diseases of the circulatory system; Z83.3 Family history of diabetes mellitus; Z87.442 Personal history of urinary calculi; Z90.49 Acquired absence of other specified parts of digestive tract; Z20.822 Contact with and (suspected) exposure to COVID-19
CPT/HCPCS: 36415; 71045; 74177; 76775; 80048; 80053; 80061; 81001; 82962; 83036; 83605; 83690; 83735; 84484; 85025; 85049; 87040; 87077; 87086; 87088; 87186; 87426; 93005; 96365; 96375; G0378; J0696; J1815; J1956; J2001; J2185; J2405; J3480; J3490